=== PATIENT | female | born 2000 | race Two or more races ===

== ENCOUNTER 2025-03-11 13:41 | Outpatient (AMB) | payer MEDICAID, SELFPAY ==
--- NOTE | 2025-03-11 14:01 | OBCLNT_ITS ---
Vital Signs 03/11/25 14:17 Weight 74.446 kg Weight Measurement Method Standing Scale BP 105/68 Blood Pressure Source Automatic Cuff Blood Pressure Location Right Upper Arm Position Sitting Respiration 17 Pulse 85 Pulse Source Monitor Temp 97.7 F Temp Source Temporal Artery Scan Pulse Oximetry (%) 98 Oxygen Delivery Method Room Air Allergies/Home Meds Allergies & Medications Allergies No Known Allergies Allergy (Verified 04/11/25 10:28) Intake Visit Data Collection New Patient or Established: Established Patient (seen at [facility] within 3 years) Reason for Visit:: OBI Seen by Clinical Staff ONLY (RN/MA): No Financial Sales Representative Required: Yes Do You Feel Safe at Home: Yes Authorities Contacted: N/A PCP or OBGYN visit in last 3 months: No Hx Now: Yes Are you currently on any form of Control: No Pain Present Currently: No Pain Scale Used: Sherman-Bonner/Numerical Pain scale:: 0 Smoking Status Smoking Status: Never smoker Questionnaires Covid-19 Vaccine Questionnaire Has patient been vacinated for Covid-19 Have you been vacinated for Covid-19: Yes PHQ-9 PHQ-2 Over the last 2 weeks, how often have you been bothered by any of the following problems? 1. Little interest or pleasure in doing things: not at all 2. Feeling down, depressed, or hopeless: not at all Total score: 0 PHQ-9 3. Trouble falling or staying asleep, or sleeping too much: Not at all 4. Feeling tired or having little energy: Not at all 5. Poor appetite or overeating: Not at all 6. Feeling bad about yourself - or that you are a failure or have let yourself or your family down: Not at all 7. Trouble concentrating on things, such as reading the newspaper or watching television: Not at all 8. Moving or speaking so slowly that other people could have noticed? - Or the opposite - being so fidgety or restless that you have been moving around a lot more than usual: not at all 9. Thoughts that you would be better off or of hurting yourself in some way: Not at all Total score: 0 If you checked off any problems, how difficult have these problems made it for you to do your work, take care of things at home, or get along with other people?: not difficult at all Source: Developed by Drs. Freddie Blum, Anai Hussein, Joaquin Kowalski and colleagues, with an educational luis miguel from [employer]. Depression screen completed yes Social History Living Situation History Marital Status: Lives With: Spouse Housing: House Tobacco History Smoking Status: Never smoker Alcohol History Alcohol Intake: Never Domestic Abuse History Do You Feel Safe at Home: Yes History of Present Illness HPI Narrative Allie Uribe, , presents for initial intake. LMP: Unknown. CAROL based on U/S: April 04, 2025. Currently estimated at 36 weeks and 4 days gestation. OB History: - Prior pregnancies: , 1 prior - Prior C-sections, miscarriages, ectopics, or terminations: Yes, 1 prior C- section Medical History: - Chronic conditions (e.g., DM, HTN, thyroid disease): Unknown - Surgical history: Prior - Medications: Unknown - Allergies: Unknown - Psychosocial: Tobacco Unknown, Alcohol Unknown, Illicit drugs Unknown - IPV screening: Unknown, Depression screening: Unknown Family History: - Genetic or congenital disorders: Unknown - Chronic diseases in family: Unknown OB Initial Visit OB Flowsheet OB Flowsheet Initial Weight: Not Recorded Date -?-?-?-?-?-?-?-?-?-?-?-?- EGA Weight BP Alb Glu CTX Pres Fundal ht FHR Mov Dilation Station Effacement Hx Notes Visit Note 03/11/25 -?-?-?-?-?-?-?-?-?-?-?-?- 36w 4d 74.446 kg 105/68 occasional unknown 35 145 active Late entry to care with limited history available. Prior . FHR 145 bpm. U/S confirms GA. Initial labs ordered. Plan: Begin routine care Start vitamins Order full lab panel including NIPT, SMA, CF Animation Director on late-term risks and delivery planning f/u within 1 week for delivery coordinat ion and pre-op planning if scheduling C- section. 03/15/25 -?-?-?-?-?-?-?-?-?-?--?-?- 37w 1d 74.899 kg 109/75 occasional unknown 37 145 active Late transfer of care from [place]. Hx C/S. No CTX/LOF/VB, good FM. Denies BRADLEY/VC/epigastric pain. Recent US 03/14: 37w0d, EFW 3094g. Blood tests pending from yesterday. Repeat C/S scheduled 03/31 at 7:30am (39w3d), FU next week (final pre-op visit), await lab results, precautions reviewed. Menstrual History Menstrual reliability: definite Flow: normal Menstrual regularity: regular Monthly: Yes Age at menarche: 13 On control pills at conception: Yes OB History : 2 Para: 1 Hx # Pregnancies: 0 Hx Total # of Abortions (Spontaneous & Elective): 0 # of Living Children: 1 Delivery History 1st : Child's name: PANCHO MAY date: 03/24/[birth year] sex: female Gestational age at delivery (weeks): 40 Delivery type: weight (lbs): 2721.554 g History of depression before or after : No Infection History & Risk Evaluation History of STDs: none HIV risk evaluation: low risk Hepatitis B risk evaluation: low risk Patient or partner has history of Genital Herpes: No Varicella/chicken pox status: unknown Genetic Screening & History Genetic Screening/Teratology Counseling - Includes patient, baby's father, or anyone in either family with: 1. Patient's age 35 years or older as of estimated date of delivery: No 2. Thalassemia (Filipino, Sinhala, Mediterranean, or Background); MCV less than 80: No 3. Neural Tube Defect (Meningomyelocele, Spina Bifida, or Anencephaly): No 4. Congenital Heart Defect: Yes 5. Down Syndrome: No 6. Silver-Sachs (Ashkenazi Catholic, Cajun, Japanese [place]): No 7. Priti Disease (Ashkenazi Catholic): No 8. Familial Dysautonomia (Ashkenazi Catholic): No 10. Hemophilia or other blood disorders: No 11. Muscular Dystrophy: No 12. Cystic Fibrosis: No 13. Marathon's Chorea: No 14. Mental Retardation/Autism: No 15. Other inherited genetic or chromosomal disorder: No 16. Maternal Metabolic Disorder (EG,TYPE 1 Diabetes, PKU): No 17. Patient or baby's father had a child with defects not listed above: No 18. Recurrent loss or a stillbirth: No 19. Medications (including supplements, vitamins, herbs or otc drugs)/illicit/recreational drugs/alcohol since last menstrual period: No 20. Any other: No Infection History 1. Live with someone with TB or exposed to TB: No 2. Rash or viral illness since last menstrual period: No 3. Hepatitis B,C: No Other (see comments) Source: [employer] Exam General General Appearance: alert, in no apparent distress and healthy appearing Head Head exam: atraumatic Neck Neck exam: Present normal inspection and trachea midline Chest Chest inspection: Present normal inspection and symmetric chest wall rise External exam: Present normal external exam; Absent tenderness Neuro Neurological exam: Present oriented X3 Psych Psychiatric exam: Present normal affect and normal mood Office Procedures OB Clinic LOC & Office Proc's Nursing/Assessment Patient Status: Initial/New Patient OB Clinic Nursing Assessment: Medication Reconciliation, Update PMH in EMR and Vital Signs OB Clinic Coordination of Care: Education Complex Pt/Fam, Consent,records o btained, informed consent, Lab and Imaging orders and Staff clarify orders Special Needs: Heart tones New Patient Charge New Patient Point Assignment: [id number] New Patient Point Charge: FILLER SIFTER HELPER Level 3 ([id number]) Assessment & Plan Diagnosis / Problem List (1) Uterine size date discrepancy, antepartum: Status: Acute Plan Labs Ordered Today: - Initial panel - Blood type & antibody screen - CBC, RPR, HIV, HBsAg, Rubella IgG - GC/CT, UA & culture, Varicella IgG, - NIPT, SMA and CF Screen Plan: - Routine care initiated - vitamins started - Ultrasound ordered to confirm dating - Genetic screening options reviewed and patient accepts - Referral to MFM or nutrition if indicated Educated the patient on the importance of care, including taking vitamins with folic acid, iron, and calcium. Emphasized avoiding alcohol, smoking, and certain medications. Discussed common symptoms like nausea and fatigue, advising small, frequent meals and adequate hydration. Explained the need for regular check-ups and recommended safe physical activities. Instructed on signs of complications, such as severe cramping or bleeding, and when to seek immediate medical attention. Highlighted the importance of a balanced diet and avoiding high-risk foods. Encouraged open communication about any concerns or questions. Encouraged keeping up with all appointments and tests.
[2025-03-11 14:17] VITALS: BP 105/68; PULSE 85; RESP 17; TEMP 36.5; O2SAT 98
== END 2025-03-11 14:32 | disposition home or self-care (01) ==
LOC: HODSOBC 13:41
PROVIDERS: Supervising Provider Obstetrics & Gynecology; Visit Provider Obstetrics & Gynecology
DX: O09.293 Supervision of pregnancy with other poor reproductive or obstetric history, third trimester (principal); O09.893 Supervision of other high risk pregnancies, third trimester; Z3A.36 36 weeks gestation of pregnancy; O26.843 Uterine size-date discrepancy, third trimester
CPT/HCPCS: 99203; G0463

== ENCOUNTER → 2025-03-14 | Outpatient (CLI) | payer MEDICAID, SELFPAY ==
--- NOTE | 2025-03-14 09:28 | XR_ITS ---
Examination: Complete OB ultrasound greater than 14 weeks Date and time of exam: March 14, 2025 0934 hours INDICATIONS: Size dates discrepancy Findings: Viable intrauterine single fetus with single amniotic sac presentation cephalic Cardiac motion 141 BPM Minimal fluid anterior to the cardiac contour Placenta anterior grade 2 Vocal cord insertion 3 vessel Amniotic fluid index 18.8 cm Right ovary 3.4 cm arterial flow Left ovary 3.2 cm arterial flow. Composite estimated gestational age based on BPD, head circumference, abdominal circumference, femur length is 37 weeks 0 days Estimated weight 3094 g. Survey of intracranial anatomy, spinal anatomy, abdominal anatomy, four-chamber heart performed with no abnormalities identified. Impression: Viable intrauterine gestation cephalic presentation.
[2025-03-14 10:51] LABS: Basophils % (Auto) 0 % (0-2.5); Eosinophils % (Auto) 1 % (0-10); Hematocrit 39.6 % (36.0-46.0); Hemoglobin 13.7 g/dL (12.0-16.0); Immature Granulocytes % (Auto) 1 % (0-0); Immature Granulocytes Auto 0.04 Thou/mm3 (0.00-0.00); Lymphocytes # (Auto) 2.7 Thou/mm3 (1.0-4.8); Lymphocytes % (Auto) 30 % (10-50); Mean Corpuscular HGB Conc 34.6 g/dl (31.0-37.0); Mean Corpuscular Hemoglobin 32.5 pg (25.0-35.0); Mean Corpuscular Volume 94 fL (80-100); Monocytes # (Auto) 0.5 Thou/mm3 (0.0-0.8); Monocytes % (Auto) 6 % (0-12); Neutrophils # (Auto) 5.5 Thou/mm3 (1.8-7.7); Neutrophils % (Auto) 62 % (37-80); Nucleated Red Blood Cell % 0 /100 WBC (0); Platelet Count 186 Thou/mm3 (140-440); RDW Standard Deviation 46.5 fL (36.4-46.3); Red Blood Count 4.21 Miln/mm3 (4.00-5.20); White Blood Count 8.8 Thou/mm3 (3.6-11.0)
[2025-03-14 11:03] LABS: Alanine Aminotransferase 7 U/L (10-49); Albumin/Globulin Ratio 2.1 (1.2-2.2); Alkaline Phosphatase 155 U/L (46-116); Anion Gap 10 (7-16); Aspartate Amino Transferase 15 U/L (0-34); BUN/Creatinine Ratio 8 Ratio (12-20); Bilirubin,Total 0.6 mg/dL (0.3-1.2); Blood Urea Nitrogen 5 mg/dL (9-23); Calcium 9.4 mg/dL (8.3-10.6); Calcium (Corrected) 9.4 mg/dL (8.5-10.1); Chloride 102 mMol/L (98-107); Creatinine (Component) 0.6 mg/dL (0.6-1.3); Globulin 1.9 gm/dL (2.3-3.5); Glucose 91 mg/dL (74-106); Osmolality,Calculated 267 (275-295); Potassium 4.2 mMol/L (3.4-5.1); Sodium 135 mMol/L (136-145); Total Protein 5.9 gm/dL (5.7-8.2); eGFR > 60 See Note
[2025-03-14 11:04] LABS: HCG,Qualitative Serum Positive
[2025-03-14 11:10] LABS: Free T4 (Free Thyroxine) 0.98 ng/dL (0.89-1.76)
[2025-03-14 11:11] LABS: Glucose Estimated Average 91 mg/dL (80-131); Hemoglobin A1C 4.8 % Hgb (4.8-6.0)
== END | disposition home or self-care (01) ==
LOC: CDIM 09:26 → COPL 09:58
PROVIDERS: Referring Provider Obstetrics & Gynecology; Visit Provider Radiology Diagnostic Radiology
DX: O26.843 Uterine size-date discrepancy, third trimester (principal); Z3A.37 37 weeks gestation of pregnancy
CPT/HCPCS: 36415; 76805; 80053; 83036; 84439; 84703; 85025

== ENCOUNTER 2025-03-15 12:57 | Outpatient (AMB) | payer MEDICAID, SELFPAY ==
[2025-03-15 13:21] VITALS: BP 109/75; PULSE 84; RESP 17; TEMP 36.6; O2SAT 97
--- NOTE | 2025-03-15 13:21 | OBCLNT_ITS ---
Vital Signs 03/15/25 13:21 Weight 74.899 kg Weight Measurement Method Standing Scale BP 109/75 Blood Pressure Source Automatic Cuff Blood Pressure Location Right Upper Arm Position Sitting Respiration 17 Pulse 84 Pulse Source Monitor Temp 97.8 F Temp Source Temporal Artery Scan Pulse Oximetry (%) 97 Oxygen Delivery Method Room Air Allergies/Home Meds Allergies & Medications Allergies No Known Allergies Allergy (Verified 03/15/25 13:22) Intake Visit Data Collection New Patient or Established: Established Patient (seen at [facility] within 3 years) Reason for Visit:: OBC Seen by Clinical Staff ONLY (RN/MA): No Medical Auditor Required: No Do You Feel Safe at Home: Yes Authorities Contacted: N/A PCP or OBGYN visit in last 3 months: Yes Date of Last PCP or OBGYN visit: 03/11/25 Hx Now: Yes Are you currently on any form of Control: No Pain Present Currently: No Pain scale:: 0 Smoking Status Smoking Status: Never smoker Questionnaires Covid-19 Vaccine Questionnaire Has patient been vacinated for Covid-19 Have you been vacinated for Covid-19: No PHQ-9 PHQ-2 Over the last 2 weeks, how often have you been bothered by any of the following problems? 1. Little interest or pleasure in doing things: not at all 2. Feeling down, depressed, or hopeless: not at all Total score: 0 PHQ-9 3. Trouble falling or staying asleep, or sleeping too much: Not at all 4. Feeling tired or having little energy: Not at all 5. Poor appetite or overeating: Not at all 6. Feeling bad about yourself - or that you are a failure or have let yourself or your family down: Not at all 7. Trouble concentrating on things, such as reading the newspaper or watching television: Not at all 8. Moving or speaking so slowly that other people could have noticed? - Or the opposite - being so fidgety or restless that you have been moving around a lot more than usual: not at all 9. Thoughts that you would be better off or of hurting yourself in some way: Not at all Total score: 0 If you checked off any problems, how difficult have these problems made it for you to do your work, take care of things at home, or get along with other people?: not difficult at all Source: Developed by Drs. Freddie Blum, Anai Hussein, Joaquin Kowalski and colleagues, with an educational luis miguel from [employer]. Depression screen completed yes Social History Living Situation History Lives With: Spouse Housing: House Tobacco History Smoking Status: Never smoker Alcohol History Alcohol Intake: Never Domestic Abuse History Do You Feel Safe at Home: Yes History of Present Illness HPI Narrative Allie Uribe, , presents for routine visit at 37 weeks gestation. Patient has a history of prior delivery. No contractions, LOF, VB and reports good FM. Denies BRADLEY, VC, and epigastric pain. - Allie Uribe is a 1 para 1 patient at 37 weeks gestation, presenting for late transfer of care from [place]. - Estimated due date is April 04, 2025, consistent with previous dating from [place]. - Recent ultrasound on March 14, 2025, confirmed gestational age of 37 weeks 0 days. - Estimated weight: 3094 grams - Patient is scheduled for a on March 31, 2025, at 39 weeks 3 days gestation. - Blood tests were completed yesterday, results pending. Care OB Visit Log OB Flowsheet Initial Weight: Not Recorded Date -?-?-?-?-?-?-?-?-?-?-?-?- EGA Weight BP Alb Glu CTX Pres Fundal ht FHR Mov Dilation Station Effacement Hx Notes Visit Note 03/15/25 -?-?-?-?-?-?-?-?-?-?-?-?- 37w 1d 74.899 kg 109/75 occasional unknown 37 145 active Late transfer of care from [place]. Hx C/S. No CTX/LOF/VB, good FM. Denies BRADLEY/VC/epigastric pain. Recent US 03/14: 37w0d, EFW 3094g. Blood tests pending from yesterday. Repeat C/S scheduled 03/31 at 7:30am (39w3d), FU next week (final pre-op visit), await lab results, precautions reviewed. CAROL Calculator Estimated Delivery Date Method Current WG Current Estimate 04/04/25 Ultrasound #1 37w 6d Exam General General Appearance: alert, in no apparent distress and healthy appearing Head Head exam: atraumatic Neck Neck exam: Present normal inspection and trachea midline Chest Chest inspection: Present normal inspection and symmetric chest wall rise External exam: Present normal external exam; Absent tenderness Neuro Neurological exam: Present oriented X3 Psych Psychiatric exam: Present normal affect and normal mood Office Procedures OB Clinic LOC & Office Proc's Nursing/Assessment Patient Status: Established Patient OB Clinic Nursing Assessment: Medication Reconciliation, Update PMH in EMR and Vital Signs OB Clinic Coordination of Care: Education Complex Pt/Fam, Consent,records obt ained, informed consent, Lab and Imaging orders and Staff clarify orders Special Needs: Heart tones Established Patient Charge Established Patient Point Assignment: 110 Established Patient Point Charge: EP Level 3 (80-115) Assessment & Plan Diagnosis / Problem List (1) Uterine size date discrepancy, antepartum: Status: Acute (2) Supervision of high risk , unspecified, third trimester: Status: Acute Plan Problem List - , single - History of section Assessment 38-year-old at 37 weeks 0 days gestation with CAROL 04/04/2025, late transfer of care from [place]. Recent ultrasound on 03/14/2025 confirms gestational age and CAROL, with estimated weight of 3094 grams. Patient is scheduled for repeat section on 03/31/2025 at 39 weeks 3 days gestation. Blood tests were performed yesterday, results pending. Current ultrasound shows appropriate measurements and overall good findings. Plan - Scheduled for March 31 at 7:30 AM (39 weeks + 3 days) - Follow-up appointment scheduled for next week (last appointment before C- section) - Await blood test results (expected in about a week) - Confirm details with the hospital 1. Progress Reviewed gestational age, growth, and heart rate. Planned frequent visits (every 2 weeks until 36 weeks, then weekly). 2. Instructed patient to monitor movements and report decreases immediately. 3. Testing Counseled on routine third-trimester labs per guidelines. Discussed potential need for ultrasound or monitoring based on risk factors. 4. Preeclampsia Precaution Educated on preeclampsia signs: severe headache, vision changes, right upper quadrant pain, sudden swelling. Advised urgent reporting of symptoms and discussed blood pressure monitoring if high risk. 5. Labor Precautions Reviewed labor signs: regular contractions, pelvic pressure, back pain, bleeding, or fluid leakage. Instructed to seek immediate care for these symptoms. 6. Lifestyle and Delivery Preparation Reinforced vitamins, nutrition, and safe activity. Discussed plan, pain management, and . Advised on labor preparation (e.g., hospital bag) and expectations. 7. Psychosocial Support Assessed emotional well-being and offered resources for mental health or parenting support.
== END 2025-03-15 14:01 | disposition home or self-care (01) ==
LOC: HODSOBC 12:57
PROVIDERS: PCP Obstetrics & Gynecology; Referring Provider Obstetrics & Gynecology; Supervising Provider Obstetrics & Gynecology; Visit Provider Obstetrics & Gynecology
DX: O09.893 Supervision of other high risk pregnancies, third trimester (principal); O26.843 Uterine size-date discrepancy, third trimester; O09.293 Supervision of pregnancy with other poor reproductive or obstetric history, third trimester; O34.219 Maternal care for unspecified type scar from previous cesarean delivery; Z3A.37 37 weeks gestation of pregnancy
CPT/HCPCS: 99213; G0463

== ENCOUNTER 2025-03-22 14:57 | Outpatient (AMB) | payer MEDICAID, SELFPAY ==
[2025-03-22 15:09] VITALS: BP 111/76; PULSE 88; RESP 16; TEMP 36.1; O2SAT 96; BMI 28.5
--- NOTE | 2025-03-22 15:09 | AMB.OBVISIT ---
Vital Signs 03/22/25 15:09 Height 1.63 m Height Method Stated Weight 75.466 kg Weight Measurement Method Standing Scale BMI 28.5 BP 111/76 Blood Pressure Source Automatic Cuff Blood Pressure Location Left Upper Arm Position Sitting Respiration 16 Pulse 88 Pulse Source Monitor Temp 96.9 F Temp Source Oral Pulse Oximetry (%) 96 Oxygen Delivery Method Room Air Allergies/Home Meds Allergies & Medications Allergies No Known Allergies Allergy (Verified 04/11/25 10:28) Intake Visit Data Collection New Patient or Established: Established Patient (seen at [facility] within 3 years) Reason for Visit:: CARE Seen by Clinical Staff ONLY (RN/MA): No Communicable Disease Specialist Required: Yes Communicable Disease Specialist's name/title: JESSICA LANGLEY Do You Feel Safe at Home: Yes Authorities Contacted: N/A PCP or OBGYN visit in last 3 months: Yes Hx Now: Yes Are you currently on any form of Control: No Pain Present Currently: No Pain Scale Used: Sherman-Bonner/Numerical Pain scale:: 0 Smoking Status Smoking Status: Never smoker Questionnaires Covid-19 Vaccine Questionnaire Has patient been vacinated for Covid-19 Have you been vacinated for Covid-19: Yes PHQ-9 PHQ-2 Over the last 2 weeks, how often have you been bothered by any of the following problems? 1. Little interest or pleasure in doing things: not at all 2. Feeling down, depressed, or hopeless: not at all Total score: 0 PHQ-9 3. Trouble falling or staying asleep, or sleeping too much: Not at all 4. Feeling tired or having little energy: Not at all 5. Poor appetite or overeating: Not at all 6. Feeling bad about yourself - or that you are a failure or have let yourself or your family down: Not at all 7. Trouble concentrating on things, such as reading the newspaper or watching television: Not at all 8. Moving or speaking so slowly that other people could have noticed? - Or the opposite - being so fidgety or restless that you have been moving around a lot more than usual: not at all 9. Thoughts that you would be better off or of hurting yourself in some way: Not at all Total score: 0 Source: Developed by Drs. Freddie Blum, AnaiJoaquin Light and colleagues, with an educational luis miguel from [employer]. Depression screen completed yes Social History Living Situation History Lives With: Spouse Housing: House Tobacco History Smoking Status: Never smoker Alcohol History Alcohol Intake: Never Domestic Abuse History Do You Feel Safe at Home: Yes Care OB Visit Log OB Flowsheet Initial Weight: Not Recorded Date <del>?</del> EGA Weight BP Alb Glu CTX Pres Fundal ht FHR Mov Dilation Station Effacement Hx Notes Visit Note 03/11/25 <del>?</del> 36w 4d 74.446 kg 105/68 occasional unknown 35 145 active Late entry to care with limited history available. Prior . FHR 145 bpm. U/S confirms GA. Initial labs ordered. Plan: Begin routine care Start vitamins Order full lab panel including NIPT, SMA, CF Director Of Regulatory Affairs on late-term risks and delivery planning f/u within 1 week for delivery coordination and pre-op planning if scheduling . 03/15/25 <del>?</del> 37w 1d 74.899 kg 109/75 occasional unknown 37 145 active Late transfer of care from [place]. Hx C/S. No CTX/LOF/VB, good FM. Denies BRADLEY/VC/epigastric pain. Recent 03/14: 37w0d, EFW 3094g. Blood tests pending from yesterday. Repeat C/S scheduled 03/31 at 7:30am (39w3d), FU next week (final pre-op visit), await lab results, precautions reviewed. 03/22/25 <del>?</del> 38w 1d 75.466 kg 111/76 occasional unknown 38 160 active Patient reports contractions and pain when walking. Reports good FM. Denies BRADLEY, VC, and epigastric pain. Plan - Patient sent to 4th floor of hospital for evaluation of pain and potential contractions - Hospital to monitor patient for a couple of hours, check for contractions - If no issues found, patient to return home and await scheduled on March 31 - If changes occur, hospital staff will inform patient of next steps - Follow up at scheduled on March 31 if no changes CAROL Calculator Estimated Delivery Date Method Current WG Current Estimate 04/04/25 Ultrasound #1 47w 6d Office Procedures OB Clinic LOC & Office Proc's Nursing/Assessment Patient Status: Established Patient OB Clinic Nursing Assessment: Medication Reconciliation, Update PMH in EMR and Vital Signs OB Clinic Coordination of Care: Complex Care and Chronic Disease 1-5, Consent,records obtained, informed consent, Education Simp Pt/Fam, Lab and Imaging orders, Results/Orders obtained and Staff clarify orders Special Needs: Heart tones Established Patient Charge Established Patient Point Assignment: 135 Established Patient Point Charge: EP Level 4 (120-155) Assessment & Plan Diagnosis / Problem List (1) Previous section: Status: Acute (2) 2 weeks follow-up: Status: Acute
== END 2025-03-22 15:44 | disposition home or self-care (01) ==
LOC: HODSOBC 14:57
PROVIDERS: PCP Obstetrics & Gynecology; Referring Provider Obstetrics & Gynecology; Supervising Provider Obstetrics & Gynecology; Visit Provider Obstetrics & Gynecology
DX: O09.293 Supervision of pregnancy with other poor reproductive or obstetric history, third trimester (principal); O34.219 Maternal care for unspecified type scar from previous cesarean delivery; Z3A.38 38 weeks gestation of pregnancy
CPT/HCPCS: 99214; G0463

== ENCOUNTER 2025-03-22 15:56 | Observation (INO) | payer MEDICAID, SELFPAY ==
[2025-03-22 16:05] VITALS: BP 103/63; PULSE 81; RESP 18; RESP 99; TEMP 36.9; BMI 24.8
[2025-03-22 16:08] VITALS: BP 103/63; PULSE 81
== END 2025-03-22 18:55 | disposition home or self-care (01) ==
PROVIDERS: Admitting Provider Obstetrics & Gynecology; Visit Provider Obstetrics & Gynecology
DX: Z34.83 Encounter for supervision of other normal pregnancy, third trimester (principal); Z3A.38 38 weeks gestation of pregnancy
CPT/HCPCS: 59025; 59899

== ENCOUNTER 2025-03-26 19:16 | Inpatient (IN) | payer MEDICAID, SELFPAY ==
[2025-03-26] VITALS (7 sets, daily range): BP systolic 94–104; BP diastolic 59–80; PULSE 65–88; RESP 13–97; TEMP 36.6–36.9; O2SAT 97–99; BMI 27.8
[2025-03-26] MEDS: RINGERS LACTATED 1000 ML 1,000 ML 999 ML IV (20:20)
[2025-03-26 20:25] LABS: ROM Kit Lot # 58102387; ROM Swab Mixed By: KE; Rupture of Fetal Membranes Positive (Negative); Swb Mxed in Solvent 1 min? Yes
[2025-03-26 20:34] LABS: Basophils # (Auto) 0.0 Thou/mm3 (0.0-0.2); Basophils % (Auto) 0 % (0-2.5); Eosinophils # (Auto) 0.1 Thou/mm3 (0.0-0.5); Eosinophils % (Auto) 1 % (0-10); Hematocrit 36.7 % (36.0-46.0); Hemoglobin 13.4 g/dL (12.0-16.0); Immature Granulocytes Auto 0.08 Thou/mm3 (0.00-0.00); Lymphocytes # (Auto) 3.3 Thou/mm3 (1.0-4.8); Lymphocytes % (Auto) 30 % (10-50); Mean Corpuscular HGB Conc 36.5 g/dl (31.0-37.0); Mean Corpuscular Hemoglobin 32.9 pg (25.0-35.0); Mean Corpuscular Volume 90 fL (80-100); Monocytes # (Auto) 0.7 Thou/mm3 (0.0-0.8); Monocytes % (Auto) 6 % (0-12); Neutrophils # (Auto) 6.8 Thou/mm3 (1.8-7.7); Neutrophils % (Auto) 62 % (37-80); Nucleated Red Blood Cell # 0.00 Thou/mm3 (0.00-0.00); Nucleated Red Blood Cell % 0 /100 WBC (0); Platelet Count 161 Thou/mm3 (140-440); RDW Standard Deviation 44.2 fL (36.4-46.3); Red Blood Count 4.07 Miln/mm3 (4.00-5.20); White Blood Count 10.9 Thou/mm3 (3.6-11.0)
[2025-03-26] MEDS: CITRIC ACID/SODIUM CITR 15 ML UDC (BICITRA) 30 ML PO (21:23)
[2025-03-26] MEDS: ceFAZolin/D5W 2 GM IV 2 GM/100 ML BAG IV (21:24)
[2025-03-26] MEDS: FAMOTIDINE INJ 10 MG/ML VIAL 2 ML 20 MG IV (21:24)
[2025-03-26 21:27] LABS: Syphilis Nonreactive (Nonreactive)
[2025-03-26] MEDS: AZITHROMYCIN 250 MG TABLET 500 MG PO (21:47)
[2025-03-26 21:48] LABS: Amphetamine/Metham Scrn,Ur OB Negative (Negative); Benzoylecgonine Screen, Ur OB Negative (Negative); Opiate Screen,Urine OB Negative (Negative); THC Screen,Urine OB Negative (Negative)
[2025-03-26 22:10] LABS: HIV (1&2) Antibody Rapid Non-Reactive
--- NOTE | 2025-03-26 23:26 | PD.LDHP ---
Documentation for date of: 03/26/25 OB Labor/Induct. HPI History of Present Illness Chief complaint: Contractions, possible leaking fluid : 2 Para: 1 Term pregnancies: 1 pregnancies: 0 Living children: 1 History of Abortions: Spontaneous and Elective: 0 History of Vaginal deliveries: 0 History of sections: Yes History of : No CAROL: 04/04/25 Gestational Age (weeks): 38 Gestational Age (days): 5 History of present illness: The patient is a 24-year-old -0-0-1 with all care in [place] who transferred to the [place] [facility] clinic at 37 weeks. By her dating she was 38-5/7 weeks. She had a couple of visits with Dr. Bah starting March 11. This evening she presented to OB triage reporting leaking fluids and contractions. An AmniSure was positive. She was not sure how long she had been leaking fluid possibly up to a week. No fevers chills or foul discharge. Patient has a vertical skin incision but states she has a low transverse lower uterine segment. She is consented for a repeat section in labor. Of note she is [place]-speaking only and her history physical and consent was all done through an official information and referral director. Also of note the patient has a vertical skin incision and does state it is okay to do a Pfannenstiel skin incision. History of Present Dating criteria: based on 3rd trimester US only (No records are available except a couple of ultrasounds) Adequate Care: No (Transfer from [place] at 37 weeks, no records) Ultrasounds: other (Patient has ultrasounds on chart that are in [place].) Obstetrical complications: none Medical complications: none Labs Maternal Blood Type: A Pos Labs: Negative: RPR and HIV and Unknown: Hepatitis B, Rubella Titre, Chlamydia, Gonorrhea, Herpes Type 1, Herpes Type 2, Group Beta Strep and Covid-19 Narrative: At the time of admission most of a panel is pending. We know her blood type is a positive she is RPR nonreactive and HIV is negative. No group B strep is available or other lab work. Past Medical History Surgical History SURGICAL: Positive Section Past Medical History Comments PMH COMMENT: Patient denies any significant past medical history Meds Home Medications and Allergies Home Medications ?Medication ?Instructions ?Recorded ?Confirmed ?Type vits no.126-ferrous fum 1 tab PO QDAY 03/11/25 03/26/25 History 28 mg iron-folic acid 800 mcg tablet (Classic ) Allergies Allergy/AdvReac Type Severity Reaction Status Date / Time No Known Allergies Allergy Verified 03/26/25 21:13 OB Exam Physical Exam Vital signs: Temp Pulse Resp BP Pulse Ox O2 Del Method 98.0 F 83 18 104/68 99 Room Air 03/26/25 22:04 03/26/25 22:04 03/26/25 22:04 03/26/25 22:04 03/26/25 22:04 03/26/25 22:04 Narrative: Fundus firm nontender Routine Abdominal Exam Abdominal: Present soft and surgical scars (Vertical skin scar well-healed) Detailed Labor and Delivery Exam Presentation: Vertex Membranes: ruptured (AmniSure positive) Amniotic fluid: clear Baseline heart rate: 140 monitor decelerations: None detention variability: Moderate (11-25) Contraction frequency (min): Every 3 to 4 minutes Tachysystole: No Contraction intensity: Mild OB Results Labs 03/26/25 20:28 Labs: Short CBC 03/26/25 Range/Units 20:28 WBC 10.9 (3.6-11.0) Thou/mm3 Hgb 13.4 (12.0-16.0) g/dL Hct 36.7 (36.0-46.0) % Plt Count 161 (140-440) Thou/mm3 OB Assessment & Plan Assessment and Plan (1) Supervision of high risk , unspecified, third trimester: Status: Acute Assessment and plan: Admit patient. Draw all labs as these are not available. No records are available except ultrasounds from [place]. (2) Previous section: Status: Acute Assessment and plan: Consented for repeat section. The risks of the procedure were discussed with the patient through a hoist cylinder loader including the risk of bleeding, infection, blood transfusion, damage to bowel, bladder, blood vessels, other organs. Prolonged hospital stay and further surgery should any above occur. The patient opts for a Pfannenstiel skin incision instead of a vertical one this time.
[2025-03-26] MEDS: OXYTOCIN in NS 20 units 20 UNIT/1,000 ML BAG 125 UNIT IV (23:32)
--- NOTE | 2025-03-26 23:49 | PD.GYNPROC ---
Operative Note - TOOL GRINDING TECHNICIAN Procedure Date of procedure: 03/26/25 Procedure Performed: Repeat low-transverse section Indication: Patient is a 24-year-old -0-0-1 with all care in [place] transferred [facility] the [facility] at [address] Bah for 1 or 2 visits. She presented to triage the evening of 03/26/2025 reporting leaking fluids and early labor. She was found to be AmniSure positive. She was best regularly on the monitor although she was not in a large amount of pain. She was consented for a repeat low-transverse section. Of note the patient has a vertical skin incision and consented for a Pfannenstiel skin incision this time. Pre-Op diagnosis: 1. IUP at 38-/-week 2. All care in [place] until 37 weeks 3. Rupture of membranes, early labor 4. Previous section with an undocumented uterine scar Post-Op diagnosis: Same Anesthesia type: Spinal Procedure description: After obtaining informed consent, the patient was brought back to the operating room and spinal anesthesia administered. She was then prepped and draped in the dorsal supine position with a leftward tilt in a normal sterile fashion. A Acosta catheter had been inserted into the patient's bladder. The patient was given 2 g of Ancef by anesthesia. A Pfannenstiel skin incision was made with a scalpel and carried down to the underlying fascia. The fascia was incised in the midline, and the fascial incision extended laterally using Noble scissors. The superior aspect fascia was grasped with Macario clamps, and the underlying rectus muscles dissected off using blunt and sharp dissection. This was repeated in the inferior aspect the incision. The rectus muscles were in the midline and the peritoneal cavity entered with blunt dissection with the surgeon's fingers. This was extended superiorly and inferiorly with good visualization the bladder again using blunt dissection. A bladder blade was inserted and the uterus was incised in a low transverse fashion above the bladder reflection. The uterine incision was extended laterally using blunt dissection with the surgeon's fingers. The bag frankel was ruptured and clear fluid was noted. The bladder blade was removed, and the was delivered atraumatically. The cord was clamped and cut, and the infant was handed off to the waiting pediatric staff. Cord blood was collected. Cord gases were saved. The placenta was then manually removed, and the uterus was exteriorized and cleared of all clots and debris. The uterine incision was repaired with 0 Monocryl in a running locked fashion. A couple of agdwma-gw-nrmvh sutures were used to obtain excellent hemostasis. The uterus was returned to the patient's abdominal cavity, and copious irrigation carried out with warm normal saline. The uterine incision was examined several times and noted be hemostatic. After ensuring the rectus muscles were hemostatic, these were reapproximated the midline using a running suture of 0 Monocryl. The fascia was closed with 0 Vicryl in a running fashion. The subcutaneous tissues were irrigated and found to be hemostatic. These were reapproximated using running suture of 3-0 plain. The skin was closed with subcuticular suture of 4-0 Monocryl. The patient tolerated the procedure well, sponge, lap, needle, and instrument counts were correct x 2. The patient went to the recovery area awake and in stable condition. Of note, the baby was with mom in recovery in stable condition. Fluids: crystalloid Fluid amount (mL): 1,000 Urine output (mL): 600 Specimen: none Implants: None Estimated blood loss (ml): 400 Findings: Liveborn male in the OA presentation with no nuchal cord and meconium. Apgars were 8 and 9. Weight was 8 pounds 10 ounces. Normal uterus, ovaries, and fallopian tubes bilaterally. Normal lower uterine segment. Very little scar tissue present in the patient's abdomen Complications: none Surgical staff Operation Date: 03/26/25 22:15 Case Staff TOBACCO BALER: Melvin Paul RNgas plant specialist: Clemencia Fonseca Diagnosis Discharge Diagnosis (1) Previous section: Status: Acute (2) Supervision of high risk , unspecified, third trimester: Status: Acute Problem List Completed Was Problem List Reviewed/Reconciled?: Yes
[2025-03-27] VITALS (13 sets, daily range): BP systolic 90–115; BP diastolic 47–68; PULSE 62–86; RESP 13–21; TEMP 36.3–37.2; O2SAT 95–99
--- NOTE | 2025-03-27 00:21 | OBDSUM_ITS ---
Data (Sanchez) Data Hx Section: Yes Maternal Blood Type: A Pos Rubella Titre: Unknown RPR: Non-reactive Labs: Negative: RPR and Unknown: Hepatitis B, HIV, Chlamydia, Gonorrhea, Herpes Type 1, Herpes Type 2 and Group Beta Strep : 2 Term: 1 : 0 Livin Abortions: Spontaneous & Theraputic: 0 Delivery Data (Sanchez) Labor Data Induction/Augmentation Agent: None ROM date: 03/19/25 Amniotic membrane rupture type: Spontaneous Amniotic fluid description: Clear Delivery Data EDC: 04/04/25 EDC calculated by:: other ( care in [place]. No records available at the time of delivery.) Date of arrival to unit: 03/26/25 delivery date: 03/26/25 [place] delivery time: 22:48 Gestational age (weeks): 38 Gestational age (days): 5 Placenta delivery date: 03/26/25 Placenta delivery time: 22:49 Delivered by: Disha Georges (OB Clinic) Delivery nurse: TEQUILA Ontiveros [facility] nurse: TEQUILA Batres [employer] Professional at delivery: No Support person(s) at delivery: Sister of patient at delivery Other staff at delivery: RT Delivery Method Delivery method: Low Transverse Presentation: Vertex position: OA Anesthesia Type Anesthesia Type: Spinal Anesthesia type: Spinal Delivery Room Medications Delivery room medications: Pitocin 20 u IV Placenta Placenta delivery description: Manual Removal Cord blood sent to lab: Yes cord blood collection: Cord Blood Type Episiotomy Episiotomy description: None EBL Estimated blood loss (ml): 400 Umbilical Cord cord description: 3 Vessels Additional Procedures performed. See op report for further details. Complications Complications: None Data (Sanchez) Data order: 1 's gender: Male Identification band number: [id number] weight (gms): 3910 g Weight (pounds): 8 lbs and 9.9 ozs [place] length: 53.34 cm 1 minute: 9 5 minutes: 9 10 minutes: 9
[2025-03-27] MEDS: ONDANSETRON INJ 2 MG/ML INJ 2 ML 4 MG IVP ×2 (00:49→06:21)
[2025-03-27 05:50] LABS: Basophils # (Auto) 0.0 Thou/mm3 (0.0-0.2); Basophils % (Auto) 0 % (0-2.5); Eosinophils # (Auto) 0.0 Thou/mm3 (0.0-0.5); Eosinophils % (Auto) 0 % (0-10); Hematocrit 36.1 % (36.0-46.0); Hemoglobin 12.7 g/dL (12.0-16.0); Immature Granulocytes Auto 0.06 Thou/mm3 (0.00-0.00); Lymphocytes # (Auto) 2.3 Thou/mm3 (1.0-4.8); Lymphocytes % (Auto) 15 % (10-50); Mean Corpuscular HGB Conc 35.2 g/dl (31.0-37.0); Mean Corpuscular Hemoglobin 32.9 pg (25.0-35.0); Mean Corpuscular Volume 94 fL (80-100); Monocytes # (Auto) 0.8 Thou/mm3 (0.0-0.8); Monocytes % (Auto) 5 % (0-12); Neutrophils # (Auto) 12.7 Thou/mm3 (1.8-7.7); Neutrophils % (Auto) 80 % (37-80); Nucleated Red Blood Cell # 0.00 Thou/mm3 (0.00-0.00); Nucleated Red Blood Cell % 0 /100 WBC (0); Platelet Count 151 Thou/mm3 (140-440); RDW Standard Deviation 45.2 fL (36.4-46.3); Red Blood Count 3.86 Miln/mm3 (4.00-5.20); White Blood Count 16.0 Thou/mm3 (3.6-11.0)
[2025-03-27] MEDS: OXYTOCIN in NS 20 units 20 UNIT/1,000 ML BAG 125 UNIT IV (07:20)
[2025-03-27] MEDS: KETOROLAC INJ 30 MG/ML VIAL IVP (10:39)
[2025-03-27 17:09] LABS: Chlamydia trachomatis PCR Negative (Not Detect); Neisseria Gonorrhoeae DNA PCR Negative (Not Detect); Trichomonas Negative (Negative)
[2025-03-27 21:48] LABS: Hepatitis B Surface Antigen Non Reactive (Non React); Rubella, IgG Antibody Reactive (Immune)
--- NOTE | 2025-03-27 22:50 | PD.LDPPPRG ---
Subjective Subjective Interval history: Patient is a 24-year-old G2 now P2002 POD#1 repeat in labor. She had her first in [place]. She had [address] Bah and was supposed to be having a on 03/29/2025. Today, she is ambulating ,her pain is controlled, and bleeding is minimal. She initially had some nausea after her but this has resolved. She is now passing flatus and tolerating a general diet. Her pain is controlled with p.o. pain medications. She is Somali-speaking only Exam Vital Signs Temp Pulse Resp BP Pulse Ox O2 Del Method 98.1 F 86 16 97/63 97 Room Air 03/27/25 19:34 03/27/25 19:34 03/27/25 19:34 03/27/25 19:34 03/27/25 19:34 03/27/25 19:34 Narrative Exam Patient is alert and oriented x 3 in no apparent distress. Fundus is firm. Incision is dressed and dry. Objective Labs 03/27/25 05:10 Labs: Laboratory Results - last 24 hr 03/26/25 03/26/25 03/27/25 20:20 21:20 05:10 WBC 16.0 H D RBC 3.86 L Hgb 12.7 Hct 36.1 MCV 94 MCH 32.9 MCHC 35.2 RDW Std Deviation 45.2 Plt Count 151 Neut % (Auto) 80 Lymph % (Auto) 15 [place] % (Auto) 5 Eos % (Auto) 0 Baso % (Auto) 0 Neut # (Auto) 12.7 H Lymph # (Auto) 2.3 [place] # (Auto) 0.8 Eos # (Auto) 0.0 Baso # (Auto) 0.0 Immature Gran # (Auto) 0.06 H Absolute Nucleated RBC 0.00 Immature Gran % 0 Nucleated RBC % 0 Chlam trachomat DNA PCR Negative Hep Bs Antigen Non Reactive N.gonorrhoeae DNA (PCR) Negative Rubella IgG Antibody Reactive (Immune) Trichomonas DNA Probe Negative Assessment & Plan Problem List (1) Previous section: Problem details: Patient is postop day 1. Doing well. Continue p.o. pain medications. Probable discharge postoperative day #2. Status: Acute (2) Supervision of high risk , unspecified, third trimester: Status: Acute Time Spent With Patient Time: Total time spent is greater than 50% in coordination of care (as documented) at patient's floor/unit and/or counseling patient: Time with patient: less than 15 minutes
[2025-03-28 03:36] VITALS: BP 100/66; PULSE 78; RESP 16; TEMP 36.6; O2SAT 99
[2025-03-28 05:23] LABS: Basophils # (Auto) 0.0 Thou/mm3 (0.0-0.2); Basophils % (Auto) 0 % (0-2.5); Eosinophils # (Auto) 0.1 Thou/mm3 (0.0-0.5); Eosinophils % (Auto) 1 % (0-10); Hematocrit 33.2 % (36.0-46.0); Hemoglobin 11.7 g/dL (12.0-16.0); Immature Granulocytes Auto 0.06 Thou/mm3 (0.00-0.00); Lymphocytes # (Auto) 2.5 Thou/mm3 (1.0-4.8); Lymphocytes % (Auto) 25 % (10-50); Mean Corpuscular HGB Conc 35.2 g/dl (31.0-37.0); Mean Corpuscular Hemoglobin 33.1 pg (25.0-35.0); Mean Corpuscular Volume 94 fL (80-100); Monocytes # (Auto) 0.7 Thou/mm3 (0.0-0.8); Monocytes % (Auto) 7 % (0-12); Neutrophils # (Auto) 6.9 Thou/mm3 (1.8-7.7); Neutrophils % (Auto) 67 % (37-80); Nucleated Red Blood Cell # 0.00 Thou/mm3 (0.00-0.00); Nucleated Red Blood Cell % 0 /100 WBC (0); Platelet Count 157 Thou/mm3 (140-440); RDW Standard Deviation 45.7 fL (36.4-46.3); Red Blood Count 3.54 Miln/mm3 (4.00-5.20); White Blood Count 10.3 Thou/mm3 (3.6-11.0)
[2025-03-28] MEDS: IBUPROFEN TAB 400 MG TABLET 800 MG PO ×2 (06:57→16:13)
[2025-03-28 08:00] VITALS: BP 94/60; PULSE 73; RESP 16; TEMP 36.6; O2SAT 99
--- NOTE | 2025-03-28 08:20 | PD.LDDS ---
DS: Providers Provider Date of admission: 03/26/25 23:02 Primary care physician: Physician No Primary/Family Admitting Provider: Disha Georges MD (OB Clinic) Attending Provider on Admission: Craig Woodall MD Consults: 03/26/25 23:54 Referral Routine Comment: Attending Provider on DC: Craig Woodall MD Discharging Provider: Craig Woodall MD DS: Diagnosis Problem List Completed Was Problem List Reviewed/Reconciled?: Yes Summary/Hosp Course Brief History: The patient is a 24-year-old -0-0-1 with all care in [place] who transferred to the [facility] clinic at 37 weeks. By her dating she was 38-5/7 weeks. She had a couple of visits with Dr. Bah starting March 11. This evening she presented to OB triage reporting leaking fluids and contractions. An AmniSure was positive. She was not sure how long she had been leaking fluid possibly up to a week. No fevers chills or foul discharge. Patient has a vertical skin incision but states she has a low transverse lower uterine segment. She is consented for a repeat section in labor. Of note she is [place] Islander-speaking only and her history physical and consent was all done through an official spanish interpreter/translator. Also of note the patient has a vertical skin incision and does state it is okay to do a Pfannenstiel skin incision. Peripartum Data Delivery Method: Low Transverse Episiotomy Description: None Procedures: Procedures Operation Date: 03/26/25 22:15 Actual Procedure Side Surgeon p in OB Disha Georges (OB Clinic)MD Time Spent with Patient Time attestation: Total time spent providing and/or coordinating discharge services: Exam Vital Signs Temp Pulse Resp BP Pulse Ox O2 Del Method 98 F 73 16 94/60 99 Room Air 03/28/25 08:00 03/28/25 08:00 03/28/25 08:00 03/28/25 08:00 03/28/25 08:00 03/28/25 08:00 Discharge Plan Plan Patient Disposition: HOME (Self Care) Patient condition on transfer: Stable Prescriptions/Referrals Prescriptions/Med Rec: New hydrocodone-acetaminophen 5-325 mg tablet 1 tab PO Q6H MDD 4 PRN (Reason: pain) Qty: 20 0RF Continued Classic 28 mg iron- 800 mcg tablet 1 tab PO QDAY Referrals: No Primary/Family,Physician [Primary Care Provider] - Patient/Caregiver Discharge Instructions Discharge Activity: activity as tolerated Other Discharge Activity Instructions:: Follow up office 1 week. Education Materials: C Section Dc Print Language: [place] Island[place] Stand Alone Forms: Johanne Award Info., Patient Portal Info Letter Discharge Order Discharge Orders: Discharge (Routine); Ordered 03/28/25 Ordered By: Craig Woodall Planned Discharge Date 03/28/25
--- NOTE | 2025-03-28 08:36 | ESPR_ITS ---
RE: EVELYN FLEMING : 2000 DATE OF SERVICE: Postop day #2, status post delivery. No problems or complaints. OBJECTIVE: VITAL SIGNS: Blood pressure 100/66, heart rate 78, respirations 16, temperature is 97.8, pulse oximetry is 90% on room air. LUNGS: Clear to auscultation bilaterally. HEART: Regular rate and rhythm. ABDOMEN: Incision clear and intact. Fundus is firm. Lochia is scant. EXTREMITIES: Nontender. ASSESSMENT: Postoperative day #2, status post delivery. PLAN: Discharge home. Discharge instructions given. Follow up in the office in 1 week. DT: 06:40:26 TT: 07:14:00 Ref: [id number] - TID: [id number]
[2025-03-28] MEDS: PRENATAL VITAMIN/FE FUM/FA TABLET 1 TAB PO (08:39)
[2025-03-28] MEDS: DIPHTH,PERTUSS(ACELL),TET VAC 0.5 ML SYR- ADULT IMi (09:50)
--- NOTE | 2025-03-28 13:27 | PC.SS ---
GREY GOODS EXAMINER conducted bedside contact with the patient to address nursing referral indicating patient was late to care.? GREY GOODS EXAMINER utilized database management specialist services to assist with discussion.? GREY GOODS EXAMINER introduced self, role and basis of referral.? Patient confirmed late to care due to the patient?s presence in [place] at the time.? Patient stated participating with OB services in [place].? Patient has since re-located with family to [place] Upon re-location patient obtaining OB services from Dr. Bah at [facility].? , [place]; is the patient?s second child.? [place] delivered via .? will be feed by combination.? FOB is Chava Patterson.? Patient is no aligned with TANF, SNAP or WIC.? Patient denies history of alcohol/drug abuse.? Patient denies CWS intervention.? Patient denies episodes of domestic violence.? Patient denies possessing a history of mental health, reports no current possession of depression or anxiety.? Patient has access to appropriate supplies and equipment; to include a car seat.? Family will provide transportation upon discharge.? Patient describes possessing support system consisting of FOB and extended family.? GREY GOODS EXAMINER provided the patient with community resources to include Parenting Network and Warm Line.? No further intervention required at this time, social welfare administrator will be available to address any further concerns.? GREY GOODS EXAMINER updated bedside nurse.?
[2025-03-28 16:00] VITALS: BP 102/63; PULSE 74; RESP 14; TEMP 37.3
== END 2025-03-28 18:20 | disposition home or self-care (01) | DRG 540 ==
LOC: S4SX 21:03 → S4NX 22:28
PROVIDERS: Admitting Provider Obstetrics & Gynecology; Visit Provider Specialist
PROC: 10D00Z1 Extraction of Products of Conception, Low, Open Approach (ICD-10-PCS; CPT 59514; principal; 2025-03-26 22:00)
DX: O34.211 Maternal care for low transverse scar from previous cesarean delivery (principal); Z37.0 Single live birth; Z3A.37 37 weeks gestation of pregnancy; Z3A.38 38 weeks gestation of pregnancy
CPT/HCPCS: 36415; 59025; 59409; 80307; 84112; 85025; 86703; 86762; 86780; 86850; 86900; 86901; 87340; 87491; 87591; 87661; 90715; 94762; A4314; A4649; J0689; J1885; J2274; J2371; J2405; J2590; J3490; J7120; A9270; J2270

== ENCOUNTER 2025-04-11 10:14 | Outpatient (AMB) | payer MEDICAID, SELFPAY ==
[2025-04-11 10:27] VITALS: BP 130/71; PULSE 85; RESP 17; TEMP 36.3; O2SAT 97; BMI 25.3
--- NOTE | 2025-04-11 10:27 | AMBOBPPN_ITS ---
Vital Signs 04/11/25 10:27 Height 1.63 m Height Method Stated Weight 67.302 kg Weight Measurement Method Standing Scale BMI 25.3 BP 130/71 Blood Pressure Source Automatic Cuff Blood Pressure Location Right Upper Arm Position Sitting Respiration 17 Pulse 85 Pulse Source Monitor Temp 97.4 F Temp Source Temporal Artery Scan Pulse Oximetry (%) 97 Oxygen Delivery Method Room Air Allergies/Home Meds Allergies & Medications Allergies No Known Allergies Allergy (Verified 04/11/25 10:28) Intake Visit Data Collection New Patient or Established: Established Patient (seen at [facility] within 3 years) Reason for Visit:: 2WEEKS Seen by Clinical Staff ONLY (RN/MA): No Flash Developer Required: No Do You Feel Safe at Home: Yes Authorities Contacted: N/A PCP or OBGYN visit in last 3 months: Yes Date of Last PCP or OBGYN visit: 03/28/25 Hx Now: No Are you currently on any form of Control: No Pain Present Currently: No Pain Scale Used: Sherman-Bonner/Numerical Pain scale:: 0 Smoking Status Smoking Status: Never smoker CONVERTER SUPERVISOR: Past Medical History Past Medical History: No Hx Neurological Disorders, No Hx Cardiac Disorders, No Hx Cancer, No Hx Blood Disorders, No Hx Anemia, No Hx Gastrointestinal Disorders, No Hx Renal Disease, No Hx Diabetes Mellitus Type 1 and No Hx Diabetes Mellitus Type 2 Questionnaires Covid-19 Vaccine Questionnaire Has patient been vacinated for Covid-19 Have you been vacinated for Covid-19: No Social History Living Situation History Marital Status: Lives With: Family Housing: House Housing Other:: MOBILE HOME Tobacco History Smoking Status: Never smoker Second Hand Smoke Exposure: No Alcohol History Alcohol Intake: Never Domestic Abuse History Do You Feel Safe at Home: Yes EPDS - PP Depression Screening [place] Pospartum Depression Screen I have been able to laugh and see the funny side of things: (0) As much as I always could I have looked forward with enjoyment to things: (0) As much as I ever did I have blamed myself unnecessarily when things went wrong: (0) No, never I have been anxious or worried for no good reason: (0) No, not at all I have felt scared or panicky for no very good reason: (0) No, not at all Things have been getting on top of me: (0) No, I have been coping as well as ever I have been so unhappy that I have had difficulty sleeping: (0) No, not at all I have felt sad or miserable: (0) No, not at all I have been so unhappy that I have been crying: (0) No, never The thought of harming myself has occurred to me: (0) Never EPDS completed yes Care OB Visit Log OB Flowsheet Initial Weight: Not Recorded Date -?-?-?-?-?-?-?-?-?-?-?-?- EGA Weight BP Alb Glu CTX Pres Fundal ht FHR Mov Dilation Station Effacement Hx Notes Visit Note 03/15/25 -?-?-?-?-?-?-?-?-?-?-?-?- 37w 1d 74.899 kg 109/75 occasional unknown 37 145 active Late transfer of care from [place]. Hx C/S. No CTX/LOF/VB, good FM. Denies BRADLEY/VC/epigastric pain. Recent US 03/14: 37w0d, EFW 3094g. Blood tests pending from yesterday. Repeat C/S scheduled 03/31 at 7:30am (39w3d), FU next week (final pre-op visit), await lab results, precautions reviewed. CAROL Calculator Estimated Delivery Date Method Current WG Current Estimate 04/04/25 Ultrasound #1 41w 0d HPI Interval History: 24-year-old 2 para 2 for 3-week . Patient had a repeat C- section March 26, 2025. She had a baby boy. 8 pounds 10 and 11 ounces. Patient is bottlefeeding. She is happy and she has support at home by the father of the baby. So limited family support she has no interval complaints except no problems with voiding and BM. And no complaints of pain. Patient is contemplating Nexplanon for contraception Was or delivery considered high risk: Yes Delivery type: (repeat x1) Was labor induced: no and spontaneous labor Gestational age at delivery (weeks): 38 Delivery date: 03/26/25 Delivering provider: reji Delivery complications: No Is patient : No Is patient sexually active: No Contraception planned: nexplanon Review of Systems Review of Systems ROS limited to current CONVERTER SUPERVISOR complaints: Yes Exam Narrative Physical exam: euthyroid. both breast soft. no s/s mastitis. uterus well involuted, incision clean, no s/s of infection. uterus well involuted. small lochia. negative homans, 2+ dtr Office Procedures OB Clinic LOC & Office Proc's Nursing/Assessment Patient Status: Established Patient OB Clinic Nursing Assessment: Medication Reconciliation, Update PMH in EMR and Vital Signs OB Clinic Coordination of Care: Complex Care and Chronic Disease 1-5, Consent,records obtained, informed consent, Education Simp Pt/Fam and Staff clarify orders Established Patient Charge Established Patient Point Assignment: 85 Post Follow-up Visit Post Follow up Visit: Yes Assessment & Plan Diagnosis / Problem List (1) 2 weeks follow-up: Status: Acute Plan No heavy lifting. Discussed continuing vitamins. I discussed control options with patient specifically the Nexplanon. I reviewed method side effects and answered. Increase fluids and return in 4 weeks for 6-week and Nexplanon insertion Care Uterus involuted to: 3 below umb Screened for depression: Yes Depression counseling provided: No Discussed family planning & contraception: Yes Contraception planned: nexplanon Counseling on safe resumption of sexual activity: Yes Counseling on gradual excercise: Yes Discussed and concerns (describe), provided support: No Referred to strategic debriefing specialist: No Counseled on good nutrition, hydration, and self care: Yes Reviewed vaccine status: No Chronic & current problems reconciled on problem list: Yes Infant care discussed; questions answered: feeding Follow up: routine/prn Additional counseling & anticipatory guidance provided: no sex. review nexplanon insert and method. rtc 3 week nexplanon insert and 6 week pp
== END 2025-04-11 11:38 | disposition home or self-care (01) ==
LOC: HODSOBC 10:14
PROVIDERS: Supervising Provider Advanced Practice Midwife; Visit Provider Advanced Practice Midwife
DX: Z39.2 Encounter for routine postpartum follow-up (principal)